=== PATIENT | male | born 1935 | race Caucasian/White ===

== ENCOUNTER 2017-10-06 09:52 | Outpatient (CLI) | payer MEDICARE ==
[2017-10-06 10:34] LABS: ALT (SGPT) 19 U/L (8-55); AST (SGOT) 23 U/L (5-34); Albumin 4.1 g/dL (3.4-4.8); Alkaline Phosphatase 115 U/L (40-150); Anion Gap 14 mmol/L (10-20); BUN (Urea Nitrogen) 18 mg/dL (8.4-25.7); Bilirubin, Total 0.5 mg/dL (0.2-1.2); Calc. Creatinine Clearance 0 mL/min (70-130); Calcium 9.8 mg/dL (7.8-10.44); Carbon Dioxide 22 mmol/L (23-31); Chloride 108 mmol/L (98-107); Estimated GFR-MDRD 47; Globulin 2.4 g/dL (2.4-3.5); Glucose 101 mg/dL (83-110); Potassium 5.3 mmol/L (3.5-5.1); Protein, Total 6.5 g/dL (5.8-8.1); Sodium 139 mmol/L (136-145)
--- NOTE | 2017-10-06 12:13 | CT ---
CT OF THE THORAX UTILIZING IV CONTRAST: INDICATION: Abnormal chest radiograph: TECHNIQUE: Multiple CT images were obtained of the chest utilizing IV contrast. COMPARISON: Comparisons are made with radiograph dated 08/18/15. FINDINGS: There is mild pleural thickening seen overlying the posterolateral aspect of the left chest wall near the region of the superior segment of the left lower lobe on image 36 of series 3 likely causing a r adiographic abnormality. This can be related to prior infection or prior pleurodesis. No pleural-ba sed calcifications are grossly evident. No overt soft tissue nodularity is grossly evident within th e fissures. There are areas of intralobular and interlobular septal thickening in a basal distribution involving both lower lobes, right middle lobe, and inferior lingula. There is a mild bronchiectasis seen invol ving the lower lobes. No confluent airspace opacity is evident. There is a small ground-glass nodul e seen within the right upper lobe measuring 2.5 mm on image 23 of series 3. There is some mild para septal emphysema involving both lung apices. There is a small hiatal hernia. There is some mucus-type debris seen within the mainstem trachea. N o pathologically enlarged lymph node is evident. There are calcifications involving the thoracic aor ta and coronary arteries. Adrenal glands appear within normal limits. There is partial visualization of mild right hydronephro sis that is incompletely characterized on the current study. The gallbladder is surgically absent. The visualized liver is unremarkable. No definite acute osseous abnormality is evident. There is di ffuse osteopenia. There is scattered degenerative and osteoarthritic change. No definite acute osse ous abnormality is seen involving the rib cage. No healed rib deformities are seen in the region of the pleural thickening to suggest sequelae of trauma. There are healed rib deformities involving the anterolateral right 2nd through 4th ribs. IMPRESSION: 1. Focal area of pleural thickening overlying the posterolateral aspect of the superior segment of t he left lower lobe corresponds to the radiographic abnormality seen on comparison examination. This is nonspecific and may be related to prior infection or possible trauma. No definite pleural calcifi cations or pleural nodularity is noted. 2. Interstitial fibrotic change seen predominantly in a basilar distribution. This is nonspecific b ut can be seen with entities such as interstitial lung disease. Recommend correlation. 3. Mild right renal pelvocaliectasis partially visualized involving the upper abdomen. Would recomm end correlation with a followup renal ultrasound. CODE T POS: [facility]
== END 2017-10-06 09:53 | disposition home or self-care (01) ==
LOC: NAV CT 09:52
PROVIDERS: ATTEND Internal Medicine
DX: J92.9 Pleural plaque without asbestos (principal); J84.9 Interstitial pulmonary disease, unspecified; N28.89 Other specified disorders of kidney and ureter; J44.9 Chronic obstructive pulmonary disease, unspecified; Z79.899 Other long term (current) drug therapy
CPT/HCPCS: 36415; 71260; 80053

== ENCOUNTER 2017-10-19 12:47 | Outpatient (CLI) | payer MEDICARE ==
--- NOTE | 2017-10-20 14:59 | ULT ---
BILATERAL RENAL SONOGRAM: Date: 10/19/17 HISTORY: Right renal pelvocaliectasis noted on prior CT thorax. FINDINGS: The right kidney measures 10.5 cm x 4.5 cm. There is a mildly prominent extrarenal pelvis without ove rt hydronephrosis involving the right kidney. The right kidney otherwise demonstrates a normal sonogr aphic appearance. The left kidney measures 11.3 cm x 5.4 cm. There are two anechoic structures seen in the left kidney, the largest is in the inferior pole measuring 4.8 cm, which demonstrates characteristics most sugges tive of an exophytic left renal cyst. There is a smaller, approximately 2.6 cm anechoic exophytic cys tic structure mid portion left kidney which also demonstrates characteristics most consistent with a cyst. There is no hydronephrosis seen on the left. No renal mass or renal calculus is visualized bilaterally. Urinary bladder demonstrates a normal sonographic appearance with urinary bladder volume of 203.91 mL . A post-void residual of 52.8 mL was obtained. IMPRESSION: 1. Left renal cysts. 2. No evidence of hydronephrosis bilaterally. There is a prominent extrarenal pelvis on the right. 3. Small post-void residual. POS: [facility]
== END 2017-10-19 12:48 | disposition home or self-care (01) ==
LOC: NAV ULT 12:47
PROVIDERS: ATTEND Internal Medicine
DX: N28.89 Other specified disorders of kidney and ureter (principal); N28.1 Cyst of kidney, acquired; N39.43 Post-void dribbling
CPT/HCPCS: 76770

== ENCOUNTER 2022-11-28 14:26 | Outpatient (CLI) | payer MEDICARE | END 2022-11-28 14:27 | disposition home or self-care (01) | LOC: NAV RAD 14:26 | PROVIDERS: ATTEND Nurse Practitioner Family | DX: R05.1 Acute cough (principal) | CPT/HCPCS: 71046 ==